=== PATIENT | male | born 1960 | race Caucasian/White ===

== ENCOUNTER 2023-08-09 10:31 | Emergency (ER) | payer BC ==
[2023-08-09 11:11] LABS: #Basophils 0.1 10x3/uL (0.0-0.2); #Eosinphils 0.1 10x3/uL (0.0-0.5); #Monocytes 0.6 10x3/uL (0.0-1.1); #Neutrophils 5.1 10x3/uL (1.5-8.4); %Basophils 0.7 % (0.0-2.0); %Eosinophils 1.2 % (0.0-6.0); %Lymphocytes 19.2 % (18.0-47.0); %Monocytes 8.1 % (0.0-10.0); %Neutrophils 70.1 % (40.0-75.0); Hematocrit 43.3 % (38.8-50.0); Hemoglobin 14.4 g/dL (13.5-17.5); Mean Corpuscular HGB CONC 33.3 g/dL (32.0-36.0); Mean Corpuscular Hemoglobin 29.1 pg (27.0-33.0); Mean Corpuscular Volume 87.5 fl (81.2-95.1); Mean Platelet Volume 11.3 fl (7.4-10.4); Platelet Count 162 10x3/uL (150-450); RBC Distribution Width 13.6 % (11.5-14.5); Red Blood Cell (RBC) Count 4.95 10x6/uL (4.32-5.72); White Blood Cell (WBC) Count 7.3 10x3/uL (3.5-10.5)
[2023-08-09 11:28] LABS: Troponin I Less than 0.010 ng/mL (< 0.028)
[2023-08-09 11:32] LABS: ALT (SGPT) 46 U/L (8-55); AST (SGOT) 51 U/L (5-34); Albumin 4.1 g/dL (3.4-4.8); Alkaline Phosphatase 91 U/L (40-110); Anion Gap 17 mmol/L (10-20); BUN (Urea Nitrogen) 18 mg/dL (8.4-25.7); Bilirubin, Total 0.4 mg/dL (0.2-1.2); Calc. Creatinine Clearance 0 mL/min (70-130); Calcium 9.2 mg/dL (7.8-10.44); Carbon Dioxide 22 mmol/L (23-31); Chloride 100 mmol/L (98-107); Estimated GFR 94; Globulin 2.5 g/dL (2.4-3.5); Glucose 281 mg/dL (80-115); Potassium 4.6 mmol/L (3.5-5.1); Protein, Total 6.6 g/dL (5.8-8.1); Sodium 134 mmol/L (136-145)
[2023-08-09 13:14] LABS: Troponin I Less than 0.010 ng/mL (< 0.028)
[2023-08-09 13:55] LABS: Lactic Acid 2.3 mmol/L (0.5-2.2)
[2023-08-09] MEDS ORDERED: Ibuprofen 200 MG TAB ONE (14:52)
== END 2023-08-09 14:56 | disposition home or self-care (01) ==
LOC: CSHERS 10:31
DX: R55 Syncope and collapse (principal); I10 Essential (primary) hypertension; E11.9 Type 2 diabetes mellitus without complications; F17.290 Nicotine dependence, other tobacco product, uncomplicated
CPT/HCPCS: 71045; 80053; 83605; 84146; 84484; 85025; 93005; 96360; 96361